=== PATIENT | female | born 1990 | race Caucasian/White ===

== ENCOUNTER 2023-06-05 07:13 | Inpatient (IN) | payer BC, SELFPAY ==
[2023-06-05 08:20] VITALS: BP 134/69
[2023-06-05 08:26] LABS: Add Manual Diff / Slide Review NO; Basophils Absolute Auto 100 /uL (0-100); Basophils Percent Auto 0.5 % (0-2); Eosinophils Absolute Auto 100 /uL (0-450); Eosinophils Percent Auto 0.5 % (2-4); Hematocrit 32.8 % (36-46); Hemoglobin 10.9 g/dL (12.0-16.0); Lymphocytes Absolute Auto 2600 /uL (1100-4500); Lymphocytes Percent Auto 13.9 % (25-40); Mean Corpuscular HGB Conc 33.1 % (30-36); Mean Corpuscular Hemoglobin 26.3 PG (26-34); Mean Corpuscular Volume 79.7 fL (80-100); Monocytes Absolute Auto 1500 /uL (0-900); Monocytes Percent Auto 8.2 % (3-14); Neutrophils Absolute Auto 14200 /uL (1500-7000); Neutrophils Percent Auto 76.9 % (50-75); Platelet Count 355 X10^3/uL (150-400); Red Blood Cell Count 4.12 X10^6/uL (4.0-5.2); White Blood Cell Count 18.4 X10^3/uL (4.5-11.0)
[2023-06-05] MEDS: miSOPROStoL 25 MCG TABLET 50 MCG PO ×4 (08:28→20:40)
--- NOTE | 2023-06-05 10:42 | P.HPOB_ITS ---
OB HPI Date/Time Date of admission: 06/05/23 Date Patient Seen: 06/05/23 Time Patient Seen: 07:30 History of Present Condition Chief complaint: Gestational diabetes type A2 : 3 Para: 0 Estimated Date of Delivery: 06/12/23 Estimated Gestational Age (weeks): 39 Narrative: Giselle Richardson is a 32 year old female at 39 weeks 0 days by sure LMP, concordant with 7 week US, here for IOL for GMDA2. She received regular care with CNMs, co-managed with MFM at [facility]; is complicated by GMDA2 (insulin and metformin), PCOS, BMI > 35 and migraines with aura. She has used a continuous glucose monitor with good blood sugar control; as of day of admission she is taking 50U long acting insulin QHS, 1,000mg metformin qAM, and 4-8U Novolog before meals (03/27/10). Her growth US at 37 weeks 6 days showed an EFW of 3309g, 60th percentile. Yesterday at her visit her Brooks score was 2 and a silicone gregory balloon was placed and inflated with 50mL NS. The gregory balloon came out as she was being admitted to the center this morning, 06/05/2022. She took 33U of her long acting insulin Toujeu, last night; she did not eat breakfast, or take metformin or Novolog this morning. She is feeling regular cramps and movement, has had a small amount of bloody show and no LOF. She is accompanied by her supportive latonia Mckinley and eventually plans an epidural for pain relief. Indications Indication for induction OB: gestational diabetes (GDMA2 (insulin and metformin) ) History of Present care: good care, initiated at week # (7), number of visits (14) and pounds weight gain (44) Dating criteria: LMP confirmed by 1st trimester US Ultrasounds: normal 1st trimester US and normal mid trimester US Obstetrical complications: gestational diabetes (GDMA2) Medical complications: none Preadmission Labs Blood type: B (+) positive -: Antibody screen: negative, GBS status: positive, HBsAG: negative, HIV: negative and RPR/VDLR: negative -: Chlamydia screen: not detected and Gonorrhea screen: not detected -: Rubella: immune and Varicella: immune HCT: 34.2 HCAB: negative Cell-free DNA: Negative MsAFP: Negative Narrative: 75g 2 hr: 99, 166, 116 Prior (ies) History: early SAB x 2 Evaluation Evaluation Baseline heart rate: 135 Variability: Moderate (11-25) monitor accelerations: Present Monitor Decelerations: Absent Contraction Frequency (minutes): 5 Uterine Contraction Intensity: Mild Status: Category l Dilation (cm): 3 Effacement (%): 50 Dilation: 3-4 cm Effacement: 40-50% station: -3 Position of cervix: posterior Consistency: soft Brooks score: 5 [facility] Medical History (Updated 06/05/23 @ 11:48 by Simon Nugent MD) PCOS (polycystic ovarian syndrome) Migraines Gestational diabetes Surgical History [place] teeth extracted Family History Grandfather Cancer Father Diabetes mellitus Brother Epilepsy Grandmother Osteoporosis Clotting disorder Social History marital status: unmarried,living together occupational status: employed (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 Her mother also had PCOS. Meds Home Medications and Allergies Home Medications Medication Instructions Recorded Confirmed Type insulin glargine U-300 conc 300 50 unit SUBCUT 06/05/23 History unit/mL (3 mL) subcutaneous pen (Toujeo Max U-300 SoloStar) insulin lispro 100 unit/mL SUBCUT 06/05/23 History subcutaneous pen (Humalog KwikPen (U-100) Insulin) metformin 500 mg tablet,extended 1,000 mg PO QAM 06/05/23 06/05/23 History release 24 hr Allergies Allergy/AdvReac Type Severity Reaction Status Date / Time amoxicillin Allergy Verified 06/05/23 09:04 bee venom protein (honey bee) Allergy Verified 06/05/23 09:04 clindamycin Allergy Verified 06/05/23 09:04 latex Allergy Verified 06/05/23 09:04 Review of Systems Review of Systems ROS: Yes All systems reviewed with the patient and are negative except as otherwise documented OB Exam Vital signs Blood Pressure: 132/71 Pulse Rate: 80 Temperature: 97.9 F Resp Effort & Inspection: normal respiratory effort Auscultation: clear to auscultation bilaterally Cardio Rate: regular rate Rhythm: regular rhythm Presentation: vertex Objective Labs 06/05/23 08:00 Labs: Laboratory Results - last 24 hr 06/05/23 08:00 WBC 18.4 H RBC 4.12 Hgb 10.9 L Hct 32.8 L MCV 79.7 L MCH 26.3 MCHC 33.1 RDW 15.0 H Plt Count 355 Neut % (Auto) 76.9 H Lymph % (Auto) 13.9 L [place] % (Auto) 8.2 Eos % (Auto) 0.5 L Baso % (Auto) 0.5 Neut # (Auto) 56012 H Lymph # (Auto) 2600 [place] # (Auto) 1500 H Eos # (Auto) 100 Baso # (Auto) 100 Blood Type B Positive Antibody Screen Negative Assessment and Plan Assessment and Plan Assessment and Plan narrative: A: Term nullipara IOL, cervical ripening indicated GDMA2 GBS prophylaxis indicated, penicillin and clindamycin allergic Anemia, mild Rhogam not indicated FHR Cat 1 P: Admit to center Miso for cervical ripening Cefazolin for GBS prophylaxis once patient in active labor or with ROM Active management of the third stage of labor Consulted on-call OB/ Dr. Nugent who will co-managed this patient during her inpatient stay. Reviewed MFM and GDE notes with Dr. Nugent; see MD consult note for BG management details and orders Reassess cervical change after 2 doses of miso, or about 8hrs Reassess patient coping and touch base in 4hrs or sooner PRN
--- NOTE | 2023-06-05 11:16 | PM.CN ---
History of Present Illness Consult details Date Patient Seen: 06/05/23 Time Patient Seen: 11:17 Chief complaint: Gestational diabetes type A2 Narrative: Identification: Patient is a 32-year-old she is currently 39 weeks EGA. Her EDC is noted to be 06/12/2023 by LMP and 7 week ultrasound. Patient initiated her OB care 7 weeks EGA. Because of a BMI of roughly 35 she had a hemoglobin A1c drawn which was 5.1. At 26 weeks she had a 75 g Glucola which was noted to be 160 at 1:00 a.m.. At this point the disc diagnosis of GDM was made. She had consultation with Maternal Medicine. Her eventual medications are those of metformin 1000 mg daily, as well as 50 units long-acting insulin. She is also receiving short-acting 8, 4, 10, 15 minutes before each meal. She is been monitoring her blood sugars with a constant monitoring system and her blood sugars have been averaging in the 110 to 20s. She is had good control. She does describe what appears to be some low blood sugars at 2 in the morning. She is been followed by Maternal- Medicine who has been managing her gestational diabetes. Because she is 39 weeks has been decided to proceed on with induction. Her initial exam showed her cervix to be 1 cm 50% and high. She had a Waldron catheter last night and this morning her cervix was 350 and high her Brooks score is now 5. Intention is to proceed on with misoprostol for further rapid ripening and converting to Pitocin when indicated. Meds Home Medications and Allergies Allergies Allergy/AdvReac Type Severity Reaction Status Date / Time amoxicillin Allergy Verified 06/05/23 09:04 bee venom protein (honey bee) Allergy Verified 06/05/23 09:04 clindamycin Allergy Verified 06/05/23 09:04 latex Allergy Verified 06/05/23 09:04 Review of Systems Musculoskeletal Musculoskeletal: Reports tingling (Bilateral carpal tunnel syndrome right being worse than the left.) Neurologic Neurologic: Reports tingling (Bilateral carpal tunnel syndrome right being worse than the left.) Exam Vital Signs (past 8 hours): - 06/05/23 08:20 Blood Pressure 134/69 Const General: cooperative, healthy appearing and comfortable [facility] Head: normal to inspection, normocephalic and atraumatic Eyes General: appearance normal, both eyes and all related structures Alignment and Position: alignment normal Sclera: sclerae normal Pupils: PERRL Neck Thyroid: thyroid normal Resp Effort & Inspection: normal respiratory effort and able to speak in complete sentences Auscultation: clear to auscultation bilaterally Cardio Rate: regular rate Rhythm: regular rhythm Heart Sounds: S1 normal and S2 normal Back/Spine/Pelvis Back: normal to inspection Neuro General: patient alert, patient awake, patient oriented x3 and oriented Extrem General: normal to inspection Right upper extremity: wrist (numbness/tingling in the radial nerve distribution positive Tinel's R hand) Objective Labs 06/05/23 08:00 Labs: Laboratory Results - last 24 hr 06/05/23 08:00 WBC 18.4 H RBC 4.12 Hgb 10.9 L Hct 32.8 L MCV 79.7 L MCH 26.3 MCHC 33.1 RDW 15.0 H Plt Count 355 Neut % (Auto) 76.9 H Lymph % (Auto) 13.9 L [place]yman % (Auto) 8.2 Eos % (Auto) 0.5 L Baso % (Auto) 0.5 Neut # (Auto) 00504 H Lymph # (Auto) 2600 [place] # (Auto) 1500 H Eos # (Auto) 100 Baso # (Auto) 100 Blood Type B Positive Antibody Screen Negative [facility] Medical History (Updated 06/05/23 @ 11:48 by Simon Nugent MD) PCOS (polycystic ovarian syndrome) Migraines Gestational diabetes Surgical History (Updated 06/05/23 @ 09:05 by Don Estrada RN) [place] teeth extracted Family History (Updated 06/05/23 @ 11:29 by Mikaela Bedoya CNM) Grandfather Cancer Father Diabetes mellitus Brother Epilepsy Grandmother Osteoporosis Clotting disorder Social History marital status: unmarried,living together occupational status: employed (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 Her mother also had PCOS. Assessment & Plan Assessment and plan (1) Gestational diabetes: Status: Acute (2) Migraines: Status: Acute (3) PCOS (polycystic ovarian syndrome): Status: Acute (4) Group B streptococcal carriage complicating : Status: Acute Plan Gestational diabetes A2: DEXA sticks Q 2 hours before labor and Q 1 hour while in labor sliding scale of 2 units of insulin BS greater than 120. 4 units of insulin BS greater than 160 8 units of insulin BS greater than 200 While in labor consider insulin drip of 1 unit per hour in D5 LR. Assessment & Plan narrative: 1. 39 week nulliparous female 2. GDM A2 good control, we will induce patient at 39 weeks because of her A2 GDM. We will check blood sugars q.2 hours prior to initiation of Pitocin. And Q 1 hour while on Pitocin. We will place her on a sliding scale of insulin and consider placing her on insulin drip at time of labor. Following delivery we will stop insulin and follow her blood sugars. 3. Positive GBS penicillin as well as clindamycin allergic. Patient will be given 1st generation cephalosporin for GBS prophylaxis. Time Spent With Patient Time with patient: 50 to 69 minutes with 50% spent counseling/coordinating care (Time was spent consulting with Maternal Medicine Dr. Christofer santiago, also Dr. Begum the allied health professional of the department.)
[2023-06-05 12:02] VITALS: BP 132/71; PULSE 80; TEMP 36.6
--- NOTE | 2023-06-05 12:53 | PM.OBPNLAB ---
Date/Time Date Patient Seen: 06/05/23 Time Patient Seen: 12:53 Pain Control Pain control: tolerating well Comments: Giselle is resting, sitting up in bed. Feeling mild cramps, coping well. IV in her R wrist is bothering her, RN is working on replacing it. VS: BP: 141/64 mmHg HR: 90 bpm T: 37.1C Pelvic Exam Amniotic membrane status: Intact Comments: CE deferred Contractions Contraction frequency (min): 4 Contraction duration (min): 1 Contraction pattern: Regular Contraction intensity: Mild Status status: Category l Heart Rate Baseline: 125 Monitor Accelerations: Present Monitor Decelerations: Absent Monitor Variability: Moderate Assessment and Plan Assessment: induction ongoing Comments: A: Term nullipara IOL, cervical ripening on-going GDMA2 GBS prophylaxis indicated Single elevated BP Coping well FHR Cat 1 P: Second dose of misoprosotol administered at 12:30, plan to recheck in 3 hours Start Cefazolin 2g for GBS prophylaxis when active or with ROM Continue to monitor blood sugars and treat per Dr. Nugent's orders Will continue to monitor BPs, per protocol and will notify [facility] if diagnosis of HTN is made Encourage rest as possible
--- NOTE | 2023-06-05 15:52 | PM.OBPNLAB ---
Date/Time Date Patient Seen: 06/05/23 Time Patient Seen: 15:45 Pain Control Pain control: tolerating well Comments: Giselle is resting in bed, feeling warm, uncomfortable, crampy. VS: BP: 135/68mmHg HR: 86bpm T: 37.1C Pelvic Exam Dilation (cm): 3 Effacement (%): 50 station: -3 Amniotic membrane status: Intact Comments: Baby is lower, cervix more anterior Contractions Contraction frequency (min): 4 Contraction duration (min): 1 Contraction pattern: Regular Contraction intensity: Mild Status status: Category l Heart Rate Baseline: 130 Monitor Accelerations: Present Monitor Decelerations: Absent Monitor Variability: Moderate Assessment and Plan Assessment: induction ongoing Comments: A: Term nullipara IOL, cervical ripening indicated GMDA2 GBS prophylaxis indicated Normotensive FHR Cat 1 P: Continue Misoprostol for cervical ripening Repeat CE after 2 doses or sooner, PRN Start Cefazolin 2g for GBS prophylaxis when active or with ROM Continue to monitor blood sugars and treat per Dr. Nugent's orders Will continue to monitor BPs, per protocol and will notify [facility] if diagnosis of HTN is made Reassess in 4hrs or sooner PRN
--- NOTE | 2023-06-06 01:32 | P.PNOB_ITS ---
Date/Time Date Patient Seen: 06/06/23 Time Patient Seen: 01:30 Pain Control Comments: Patient has been resting on and off. [place] some stronger contractions after her 3rd dose of misoprostol at 1630. 4th dose of miso was due at 2030 was held by RN d/t unit needs/staffing safety and is now able to be given. VS: BP 109/53, HR 69bpm, T 36.3C Temporal BGs all normal Pelvic Exam Dilation (cm): 3 Effacement (%): 50 station: -3 Amniotic membrane status: Intact Comments: CE deferred Contractions Monitor mode: External Contraction frequency (min): 6 Contraction pattern: Irregular Contraction intensity: Mild Status status: Category l Heart Rate Baseline: 120 Monitor Accelerations: Present Monitor Decelerations: Absent Assessment and Plan Assessment: induction ongoing Plan: continuous present management Comments: plan repeat CE in 3 hours.
[2023-06-06] MEDS: miSOPROStoL 25 MCG TABLET 50 MCG PO (01:42)
--- NOTE | 2023-06-06 04:40 | P.PNOB_ITS ---
Date/Time Date Patient Seen: 06/06/23 Time Patient Seen: 04:40 Pain Control Pain control: tolerating well Comments: Sleeping in bed on her left side. [place] stronger contractions with the last 2 doses of misoprostol. No vaginal bleeding or leaking of fluid. VS: 127/59, HR 85, T 36.3C Temporal BGs all normal, no insulin required since admission Pelvic Exam Dilation (cm): 4 Effacement (%): 70 station: -3 Amniotic membrane status: Intact Comments: soft, anterior Contractions Monitor mode: External Contraction frequency (min): 5 Contraction duration (min): 1 Contraction pattern: Regular Contraction intensity: Mild Status status: Category l Heart Rate Baseline: 120 Monitor Accelerations: Present Monitor Decelerations: Absent Monitor Variability: Moderate Assessment and Plan Assessment: induction ongoing Plan: begin patient augmentation Comments: Reassess in 4 hours or sooner, PRN
[2023-06-06] MEDS: OXYTOCIN PREMIX 30 UNIT/500 ML PLAST..BAG IV (07:22)
[2023-06-06] MEDS: LACTATED RINGERS 1,000 ML 100 ML IV ×3 (07:23→18:16)
[2023-06-06] MEDS: CEFAZOLIN 2 GM/100 ML PREMIX 100 ML IV (08:21)
--- NOTE | 2023-06-06 11:38 | PM.OBPNLAB ---
Date/Time Date Patient Seen: 06/06/23 Time Patient Seen: 11:38 Pain Control Pain control: epidural (requested) Comments: Pitocin was started at 0722 d/t delay for staffing/unit safety. Patient has been moving and walking and reports contractions are getting stronger, now requesting an epidural. No vaginal bleeding or leaking of fluid. VS: BP 121/61, HR 100bpm, T 36.4C Temporal q2hr BGs all WNL, no insulin required Pelvic Exam Dilation (cm): 4 Effacement (%): 50 station: -3 Amniotic membrane status: Intact Comments: CE deferred, will check after epidural placement. Contractions Monitor mode: External Pitocin rate (mU/min): 6 Contraction frequency (min): 3 Contraction pattern: Regular Contraction intensity: Moderate Status status: Category l Heart Rate Baseline: 135 Monitor Accelerations: Absent Comments: Had a period of late decelerations from 0940-100 while sitting up on a ball at the foot of the bed, resolved with position change and have not recurred since. Assessment and Plan Assessment: induction ongoing Plan: continuous present management Comments: CE once comfortable after epidural placement Continue pitocin titration to adequate contraction pattern
[2023-06-06] MEDS: DEXTROSE 5% WATER 1,000 ML 100 ML IV (12:07)
--- NOTE | 2023-06-06 16:43 | PM.OBPNLAB ---
Date/Time Date Patient Seen: 06/06/23 Time Patient Seen: 16:43 Pain Control Pain control: epidural Comments: Comfortable with adequate epidural anesthesia. Agreeable to AROM with exam, if minimal cervical change. Partner remains present and supportive. VS: BP 122/82, HR 85bpm, T 36.5C Temporal D5LR @ 100mL/hr started by after BG of 63mg/dL at 1130. BG readings since: 100, 75, 85 mg/dL No insulin required since admission Pelvic Exam Dilation (cm): 5 Effacement (%): 80 station: -3 Amniotic membrane status: Ruptured (AROM) Comments: copious clear fluid Suspect OP position Contractions Monitor mode: External Pitocin rate (mU/min): 12 Contraction frequency (min): 4 Contraction duration (min): 1 Contraction pattern: Regular Contraction intensity: Moderate Status status: Category l Heart Rate Baseline: 135 Monitor Accelerations: Present Monitor Decelerations: Absent Assessment and Plan Assessment: active labor and induction ongoing Plan: continuous present management Comments: Reassess in 4 hours or sooner, PRN
[2023-06-06] MEDS: CEFAZOLIN VIAL 1 GM in SODIUM CHLORIDE 0.9% 100 ML IV (16:51)
--- NOTE | 2023-06-06 18:11 | PM.CN ---
History of Present Illness Consult details Chief complaint: Gestational diabetes type A2 Meds Home Medications and Allergies Home Medications Medication Instructions Recorded Confirmed Type insulin glargine U-300 conc 300 50 unit SUBCUT 06/05/23 History unit/mL (3 mL) subcutaneous pen (Toujeo Max U-300 SoloStar) insulin lispro 100 unit/mL SUBCUT 06/05/23 History subcutaneous pen (Humalog KwikPen (U-100) Insulin) metformin 500 mg tablet,extended 1,000 mg PO QAM 06/05/23 06/05/23 History release 24 hr Allergies Allergy/AdvReac Type Severity Reaction Status Date / Time amoxicillin Allergy Verified 06/05/23 09:04 bee venom protein (honey bee) Allergy Verified 06/05/23 09:04 clindamycin Allergy Verified 06/05/23 09:04 latex Allergy Verified 06/05/23 09:04 Objective Labs 06/05/23 08:00 [facility] Medical History (Updated 06/06/23 @ 18:13 by Simon Nugent MD) PCOS (polycystic ovarian syndrome) Migraines Gestational diabetes Surgical History [place] teeth extracted Family History Grandfather Cancer Father Diabetes mellitus Brother Epilepsy Grandmother Osteoporosis Clotting disorder Social History marital status: unmarried,living together occupational status: 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 Her mother also had PCOS. Assessment & Plan Assessment and plan (1) Gestational diabetes: Problem details: Patient's DEXA sticks have been running in the 70s to 80s. When she was changed to Pitocin. She was started on D5 LR 100 cc/hour. At this point her blood sugars are been in the normal range. We will continue to follow. Status: Acute
[2023-06-06] MEDS: DEXTROSE 5%-LACTATED RINGERS 1,000 ML 125 ML IV (18:59)
[2023-06-06] MEDS: ACETAMINOPHEN 325 MG TABLET 650 MG PO (19:00)
--- NOTE | 2023-06-06 20:39 | PM.OBPNLAB ---
Date/Time Date Patient Seen: 06/06/23 Time Patient Seen: 20:15 Pain Control Pain control: epidural Comments: Giselle has been changing positions frequently using a peanut ball and trying exaggerated lateral positions to promote descent. She is feeling tired and frustrated and is open to any intervention to help make progress. VS and BGs stable. Pelvic Exam Dilation (cm): 5 Effacement (%): 80 station: -3 Amniotic membrane status: Ruptured (AROM) Comments: No change and IUPC placed Contractions Monitor mode: External Pitocin rate (mU/min): 12 Contraction frequency (min): 4 Contraction duration (min): 1 Contraction pattern: Regular Contraction intensity: Moderate Status status: Category l Heart Rate Baseline: 130 Monitor Accelerations: Present Monitor Decelerations: Absent Monitor Variability: Moderate Assessment and Plan Assessment: other Plan: Comments: No descent since admission, arrest of active phase on pitocin with adequate contractions by IUPC. Counseled patient on likely need for and Giselle is feeling ready. Consulted [facility] for consultation for primary at 2030 and he is on his way in. rental agent notified anesthesia and warehouse shipping supervisor.
[2023-06-06] MEDS: CITRIC ACID/SODIUM CITRATE 15 ML SOLUTION 30 ML PO (20:59)
[2023-06-06] MEDS: AZITHROMYCIN 500 MG in DEXTROSE 5% IN WATER 250 ML 250 MG IV (21:00)
--- NOTE | 2023-06-06 21:48 | SUR.OPER ---
Supine on Padded OR bed, head on pillow, safety belt at thigh, arms secured on padded arm boards at <90 degrees abduction. Bump under right buttock. Legs uncrossed with pillow under knees, gel pad to heels, tape over blanket to lower legs.
--- NOTE | 2023-06-06 22:12 | SUR.OPER ---
time 2158. Placenta and cord blood sent with OB nurses.
--- NOTE | 2023-06-06 22:29 | SUR.OPER ---
C section performed by Simon Nugent MD... unable to document this under primary, (not found on list)
--- NOTE | 2023-06-06 22:50 | PM.PROC.1 ---
Procedures Date/Time Date of procedure: 06/06/23 Time of procedure: 21:59 General Procedure description: Integrity Director Documentation I assisted the OB operations research scientist in the section for this patient. My responsibilities included retracting and suctioning, providing fundal pressure during delivery and following with suture during closure. Please see the OB's note for details of the surgery.
[2023-06-06 22:54] VITALS: BP 140/66; PULSE 75; RESP 11; TEMP 36.4; O2SAT 98
[2023-06-06 22:58] VITALS: BP 142/73; PULSE 72; RESP 12; O2SAT 98
[2023-06-06 23:04] VITALS: BP 137/77; PULSE 68; RESP 11; O2SAT 99
--- NOTE | 2023-06-06 23:12 | P.OP_ITS ---
Operative Date/Time/Diagnoses Date of procedure: 06/06/23 Time of procedure: 23:13 Pre-op diagnosis: 1. 32-year-old nulliparous female at 39 weeks 2. Gestational diabetes a 2 3. Arrest of dilatation and descent Post-op diagnosis: other (1. Live male infant 2. vertex presentation 3. right occiput transverse 4. Apgars 5 7 and 9) Procedure & Clinicians Same procedure as scheduled: Yes Operative Notes Closure Type: primary Specimen(s): cord blood and placenta Intraoperative meds administered: Ketorolac Applied: Catheter Estimated Blood Loss (mL): 300 Procedure in detail: Following informed consent: Risks, bleeding, infection, injury to pelvic organs. Bowel, bladder, uterus, tubes, ovaries. Risk of DVT with PE. Patient was taken the operating room at which time she was placed in the supine position with a roll under the right hip. She was prepped and draped in the usual fashion. A time-out was performed at which time the areas or concerns addressed. A Pfannenstiel incision was carried down through subcutaneous tissue to the fascia. The fascia incised transversely then using both blunt and sharp dissection it was freed from rectus abdominis. The rectus was split along the midline the peritoneum was entered high to avoid any injury to bowel or bladder at this point a bladder fat flap was developed using both blunt and sharp dissection. The uterus insize with a 10. Blade and carried laterally utilizing bandage scissors and finger spread technique. The head was noted to be right occiput transverse lifted out the pelvis and after unsuccessful trying to deliver the head through the incision a vacuum was applied and the head was delivered without difficulty. The oropharynx was bulb suctioned and the remainder of the delivered without difficulty. The cord was I clamped and divided and the infant was handed to the nursery team that was standing by. Cord blood samples were obtained. The uterus was exteriorized wrapped in a moist lap and cleansed internal ports the dry lap following delivery of the placenta. It was inspected and felt to be intact. Tubes and ovaries inspected noted be within normal limits. The incision was then closed utilizing a 0. Vicryl in a running locking suture. There was evidence of an extension in the right lower portion of the uterus this was also closed utilizing 0 Vicryl running locking suture this was imbricated utilizing 0 Vicryl. The suture line appeared to be hemostatic. There was some difficulty with pain control so at this point the pause was conducted which time additional epidural medication was administered. The cul-de-sac was irrigated free of any clot and an estimated blood loss of 300 cc was noted. The uterus is delivered back in abdominal cavity the incision still appeared to be hemostatic. Peritoneum was grasped with hemostats then closed utilizing 2-0 Vicryl the rectus reinspected reapproximated utilizing figure eights of 2-0 Vicryl. The fascia was closed utilizing a looped PDS and the subcutaneous tissue was closed utilizing interrupted 2-0 Vicryl. The incision itself closed utilizing 4-0 Monocryl subcuticular. The dressing was applied following application of Steri-Strips with Mastisol. Patient tolerated procedure well was taken recovery and smooth stable condition sponge and needle counts were correct this ends dictation. Complications: other (Difficulty with pain control. This was rectified by re- dosing the epidural and giving a time for this to be effective this was roughly about 5-10 minutes.) Post-operative Condition: stable Disposition: PACU Aftercare: routine postop
[2023-06-07] MEDS: ACETAMINOPHEN IV 1,000 MG/100 ML VIAL 400 MG IV (00:10)
[2023-06-07] MEDS: MORPHINE 2 MG/ML INJ IV (02:37)
[2023-06-07] MEDS: KETOROLAC 30 MG/ML VIAL IV ×3 (05:36→17:30)
[2023-06-07 06:36] LABS: Add Manual Diff / Slide Review NO; Basophils Absolute Auto 100 /uL (0-100); Basophils Percent Auto 0.8 % (0-2); Eosinophils Absolute Auto 100 /uL (0-450); Eosinophils Percent Auto 0.4 % (2-4); Hematocrit 30.2 % (36-46); Lymphocytes Absolute Auto 3100 /uL (1100-4500); Lymphocytes Percent Auto 17.7 % (25-40); Mean Corpuscular HGB Conc 33.1 % (30-36); Mean Corpuscular Hemoglobin 26.2 PG (26-34); Mean Corpuscular Volume 79.1 fL (80-100); Monocytes Absolute Auto 1500 /uL (0-900); Monocytes Percent Auto 8.5 % (3-14); Neutrophils Absolute Auto 12700 /uL (1500-7000); Neutrophils Percent Auto 72.6 % (50-75); Platelet Count 294 X10^3/uL (150-400); Red Blood Cell Count 3.82 X10^6/uL (4.0-5.2); Red Cell Distribution Width 14.8 % (11.6-14.8); White Blood Cell Count 17.5 X10^3/uL (4.5-11.0)
[2023-06-07 06:45] LABS: Hemoglobin A1C% w Est Avg Glu 5.4 % (4.0-6.0)
[2023-06-07] MEDS: DOCUSATE 100 MG CAPSULE PO (09:16)
[2023-06-07] MEDS: PRENATAL VIT,CALC/IRON/FOLIC 1 TABLET 1 TAB PO (09:16)
[2023-06-07] MEDS: OXYCODONE IR 5 MG TABLET PO ×4 (09:16→23:51)
--- NOTE | 2023-06-07 10:52 | PM.OBPN.1 ---
Subjective - OB Subjective Patient comments: no complaints (Pain is currently 3/10. She relates her pain is well controlled at this time. She is not passing flatus. Her Waldron is draining well.) baby status: doing well Date Patient Seen: 06/07/23 Time Patient Seen: 10:53 Exam Vital Signs (past 8 hours): Oxygen Delivery Method Room Air Glucose POC: 103 Const General: cooperative, healthy appearing and comfortable Eyes General: appearance normal, both eyes and all related structures Resp Effort & Inspection: normal respiratory effort and able to speak in complete sentences Auscultation: clear to auscultation bilaterally Cardio Rate: regular rate Rhythm: regular rhythm GI Auscultation: normal bowel sounds General: other (Uterus is about 1 fingerbreadth below the umbilicus it is mildly tender.) Extrem Other: Negative calf tenderness negative Homans sign Psych Appearance: grossly normal Objective Labs 06/07/23 06:20 Labs: Laboratory Results - last 24 hr 06/07/23 06:20 WBC 17.5 H RBC 3.82 L Hgb 10.0 L Hct 30.2 L MCV 79.1 L MCH 26.2 MCHC 33.1 RDW 14.8 Plt Count 294 Neut % (Auto) 72.6 Lymph % (Auto) 17.7 L Freeborn % (Auto) 8.5 Eos % (Auto) 0.4 L Baso % (Auto) 0.8 Neut # (Auto) 33365 H Lymph # (Auto) 3100 Freeborn # (Auto) 1500 H Eos # (Auto) 100 Baso # (Auto) 100 Hemoglobin A1c 5.4 Assessment & Plan Assessment and Plan (1) Gestational diabetes: Problem details: Patient's DEXA sticks have been running in the 70s to 80s. When she was changed to Pitocin. She was started on D5 LR 100 cc/hour. At this point her blood sugars are been in the normal range. We will continue to follow. Status: Acute Assessment and plan: Status post delivery her blood sugars have been running in the 89 last blood sugar was 103. I expect her gestational diabetes to resolve with time we will continue his DEXA sticks and a anti diabetic diet. (2) Group B streptococcal carriage complicating : Problem details: Patient has delivered at this point she received prophylaxis for delivery as well as section. She received 3 g of Ancef as well as azithromycin. Status: Acute Plan day: 1 plan OB: routine postop care Comments: Continue with routine post care. Time Spent With Patient Time: Total time spent is greater than 50% in coordination of care (as documented) at patient's floor/unit and/or counseling patient: Time with patient: 15-24 minutes
[2023-06-07] MEDS: ACETAMINOPHEN 325 MG TABLET 650 MG PO ×3 (11:33→23:51)
[2023-06-08] MEDS: IBUPROFEN 400 MG TABLET 800 MG PO ×2 (00:11→08:17)
[2023-06-08] MEDS: OXYCODONE IR 5 MG TABLET PO (03:57)
[2023-06-08] MEDS: ACETAMINOPHEN 325 MG TABLET 650 MG PO ×2 (05:37→12:13)
--- NOTE | 2023-06-08 07:58 | PM.OBDS.1 ---
Discharge Providers Provider Date of admission: 06/05/23 07:13 Discharge Date: 06/08/23 Consults: 06/06/23 23:36 Consult to Utilization Review Rn Routine Comment: 06/07/23 06:47 Consult to Utilization Review Rn Routine Comment: sleepy , maternal GDM, colostrum at bedside Discharge provider: Simon Nugent MD Summary Hospital Course Date Patient Seen: 06/08/23 Time Patient Seen: 08:04 Diagnoses: 1. 39 weeks' gestation 2. Gestational diabetes 3. Failed in adduction 4. Positive GBS Hospital Course: Patient was admitted. She was induced her blood sugars were monitored closely she did not require D 10 with labor she was able to maintain her blood sugars throughout her labor. She did need to have D5 LR while tye. She reached 6 cm and progressed no further following documentation of adequate uterine contractions. Patient had a primary performed without incident estimated blood loss was roughly 300 cc. Patient is recovering quite well her pain control is adequate she is passing flatus and she desires to go home. I have reviewed contraception mastitis danger signs of DVT as well as uterine infection. Patient will follow-up with her personal chef. Peripartum Data Delivery Method: Section ( for arrest in dilatation and descent) complications: none Discharge Diagnosis (1) Gestational diabetes: Status: Acute Problem Details: Subsequent to delivery patient was placed on an ADA diet. Her DEXA sticks have all been in the low 100s to 90s. (2) Group B streptococcal carriage complicating : Status: Acute Problem Details: GBS status is resolved however she will need to be treated as a previous GBS with her next . Time Spent with Patient Time attestation: Total time spent providing and/or coordinating discharge services: Objective Labs 06/07/23 06:20 Exam Vital Signs (past 8 hours): Oxygen Delivery Method Room Air Glucose POC: 103 (Following breakfast.) Const General: cooperative, healthy appearing and comfortable (Pain is 2/10 while lying, 4/10 when up. Patient notes good pain control) HENMT Head: normal to inspection Eyes General: appearance normal, both eyes and all related structures Conjunctivae: other Sclera: sclerae normal (Nonicteric) Resp Effort & Inspection: normal respiratory effort Auscultation: clear to auscultation bilaterally Cardio Rate: regular rate Rhythm: regular rhythm GI Inspection: normal to inspection and other (Dressing is dry and intact we will remove at visit) Palpation: mass (Uterus palpates 3 fingerbreadths below the umbilicus and is nontender) Auscultation: normal bowel sounds Discharge Plan Discharge Plan Patient Disposition: Home Provider Discharge Comment: Patient recovering quite well from her surgery. She is having adequate pain control. Discharge orders & Medications Prescriptions: New oxycodone 5 mg Tablet 5 mg PO Q4H PRN (Reason: Pain, Moderate (4-6)) 7 Days Qty: 10 0RF Discontinued metformin 500 mg tablet extended release 24 hr 1,000 mg PO QAM Toujeo Max U-300 SoloStar 300 unit/mL (3 mL) insulin pen 50 unit SUBCUT Patient Comments: [NO ORIGINAL SIG] insulin lispro [Humalog KwikPen Insulin] 100 unit/mL insulin pen SUBCUT Patient Comments: [NO ORIGINAL SIG] Follow up/Referrals: Mikaela Bedoya, SARA [[facility]] - (Follow-up in office for 1 week incision check on 06/15/23 @ 4:30pm Follow-up in office at 2 weeks on 06/19/23 @ 10:30am Follow-up in office at 6 weeks on @ 1:45pm ) Diet/Activity/Treatments Diet: Carb-consistent/Diabetic Visit Report/Discharge Packet Instructions: DI for Stand Alone Forms: Discharge: Care, Patient Portal/API, Stroke Signs & Symptoms Discharge Data Attending Provider: Mikaela Bedoya Admit Date/Time: 06/05/23 07:13
[2023-06-08] MEDS: PRENATAL VIT,CALC/IRON/FOLIC 1 TABLET 1 TAB PO (08:17)
[2023-06-08] MEDS: DOCUSATE 100 MG CAPSULE PO (08:17)
== END 2023-06-08 12:25 | disposition home or self-care (01) | DRG 786 ==
PROVIDERS: Obstetrics & Gynecology; Admitting Provider Nurse Practitioner Obstetrics & Gynecology; Referring Provider Nurse Practitioner Obstetrics & Gynecology; Visit Provider Nurse Practitioner Obstetrics & Gynecology
PROC: 10D00Z1 Extraction of Products of Conception, Low, Open Approach (ICD-10-PCS; CPT 59514; principal; 2023-06-06 21:30)
DX: O24.424 Gestational diabetes mellitus in childbirth, insulin controlled (principal); O99.42 Diseases of the circulatory system complicating childbirth; G43.109 Migraine with aura, not intractable, without status migrainosus; O61.0 Failed medical induction of labor; O76 Abnormality in fetal heart rate and rhythm complicating labor and delivery; O99.284 Endocrine, nutritional and metabolic diseases complicating childbirth; E28.2 Polycystic ovarian syndrome; O99.824 Streptococcus B carrier state complicating childbirth; O99.02 Anemia complicating childbirth; Z3A.39 39 weeks gestation of pregnancy; Z37.0 Single live birth
CPT/HCPCS: 36415; 59050; 59200; 59514; 83036; 85025; 86850; 86900; 86901; G0379; J0131; J0690; J1815; J1885; J2250; J2270; J2274; J2405; J2590; J7121

== ENCOUNTER → 2024-07-27 10:08 | Outpatient (CLI) | payer BC, SELFPAY ==
--- NOTE | 2024-07-27 10:10 | DI.US.S_ITS ---
LIMITED ULTRASOUND OF LEFT BREAST AND AXILLA: 07/27/2024 CLINICAL: Patient returns today to evaluate a focal asymmetry in the left breast and focal left breast palpable. Comparison is made to exam dated: 07/27/2024 mammogram - [facility]. Color flow ultrasound of the left breast axilla was performed on the areas of interest. Rooney scale images of the real-time examination were reviewed. There is a round mass in the left breast at 6 o'clock in the retroareolar region. This round mass is hypoechoic with a well-defined boundary, internal echoes, and posterior acoustic enhancement. This correlates with mammography findings. Color flow imaging demonstrates that there is no vascularity present. IMPRESSION: PROBABLY BENIGN The round mass in the left breast likely represents a fibroadenoma and is probably benign. A follow-up ultrasound in 6 months is recommended to demonstrate stability. There is no mammographic or sonographic abnormality seen in the left breast to correspond with the palpable abnormality in the upper outer quadrant, however, clinical followup is recommended. This exam was interpreted at Station ID: [id number]. Electronically Signed By: Sona renae/:07/27/2024 11:37:40 letter sent: Followup Recommended ACR BI-RADS Category 3: Probably Benign
--- NOTE | 2024-07-27 10:10 | DI.US.S_ITS ---
PROCEDURE: US PELVIC COMPLETE INDICATIONS: DYSPAREUNIA. MIRENA IUD. H/O PCOS PER PATIENT. TECHNIQUE: Real-time scanning was performed of the pelvic organs, with image documentation. Additional endovaginal scanning was necessary due to incomplete visualization of the adnexal and endometrial structures by transabdominal scanning. COMPARISON: None. FINDINGS: Uterus: Uterus is anteverted and normal in size at 7.8 x 4.4 x 2.9 cm. The myometrium is heterogeneous. The endometrium measures 2.3 mm combined thickness. IUD within the endometrium. Ovaries: The right ovary measures 2.6 x 2.3 x 1.9 cm, with a calculated ovarian volume of 6 cc. The left ovary measures 2.8 x 1.9 x 1.7 cm, with a calculated ovarian volume of 4 cc. The ovaries have a normal sonographic appearance. Less than 12 follicles can be seen in each ovary. No adnexal masses are seen. Other: No pathologic free abdominal or pelvic fluid. IMPRESSION: IUD appears appropriately positioned within the endometrium. Mildly heterogeneous myometrium, specifically round the junctional zone. Diffuse adenomyosis is a consideration. Greater than 12 follicles per ovary, which can be seen in the clinical setting of PCOS. We strive to produce accurate, complete, and clear reports of imaging services. To assist us in improving patient care, this report was composed using standard report templates and voice recognition software. Therefore, it may contain abnormal punctuation, insertions and/or omissions. Occasional wrong-word or sound-alike substitutions may occur. Though we review the report and make efforts to correct it, we do recommend that the report be read carefully in proper context to recognize any text inaccuracies. Dictated by: Kirt Winter M.D. on 07/28/2024 at 10:11 Approved by: Kirt Winter M.D. on 07/28/2024 at 10:14
--- NOTE | 2024-07-27 10:10 | DI.MG.S_ITS ---
BILATERAL DIGITAL DIAGNOSTIC MAMMOGRAM 3D/2D: 07/27/2024 CLINICAL: Baseline exam. Left breast lump. No prior exams were available for comparison. The breasts are heterogeneously dense, which may obscure small masses (category c / 51-75% glandular tissue). There is an oval focal asymmetry in the right breast at 12 o'clock posterior depth. There is a round focal asymmetry in the left breast at 6 o'clock anterior depth. No other significant masses or calcifications are seen in either breast. IMPRESSION: INCOMPLETE: NEED ADDITIONAL IMAGING EVALUATION The oval focal asymmetry in the right breast at 12 o'clock posterior depth is indeterminate. The round focal asymmetry in the left breast at 6 o'clock anterior depth is indeterminate. . There is no mammographic abnormality seen in the left breast to correspond with the palpable abnormality. A targeted ultrasound of the bilateral breasts is recommended and will be performed immediately following this exam. Based on Tyrer-Cuzick model (a risk assessment model), the patient's lifetime risk is 22.0% and her 10 year risk is 1.2%. If a patient has an elevated risk, a more comprehensive evaluation should be considered and/or a referral to a genetic counselor. The [place] [employer], [employer], and NCCN Guidelines advise the consideration of Breast MRI as an adjunct to screening mammography in patients whose Lifetime risk to develop breast cancer is 20% or higher. This exam was interpreted at Station ID: [id number]. NOTE: For mammograms, a report in lay terms will be sent to the patient. Approximately 15% of breast malignancies will not be visualized mammographically. In the management of a palpable breast mass, a negative mammogram must not discourage biopsy of a clinically suspicious lesion. Electronically Signed By: Sona renae/:07/27/2024 11:04:38 ACR BI-RADS Category 0: Incomplete: Need Additional Imaging Evaluation
--- NOTE | 2024-07-27 11:26 | DI.US.S_ITS ---
ULTRASOUND OF RIGHT BREAST: 07/27/2024 CLINICAL: Patient returns today to evaluate a focal asymmetry in the right breast. Comparison is made to exam dated: 07/27/2024 mammogram - [facility]. Color flow and real-time ultrasound of the right breast were performed on the areas of interest. Rooney scale images of the real-time examination were reviewed. There is an oval mass in the right breast at 12 o'clock posterior depth. This oval mass is hypoechoic with a well-defined boundary, internal echoes, and posterior acoustic enhancement. This correlates with mammography findings. Color flow imaging demonstrates that there is no vascularity present. IMPRESSION: PROBABLY BENIGN The oval mass in the right breast likely represents a fibroadenoma and is probably benign. A follow-up ultrasound in 6 months is recommended to demonstrate stability. This exam was interpreted at Station ID: [id number]. Electronically Signed By: Sona renae/:07/27/2024 11:36:07 letter sent: Followup Recommended ACR BI-RADS Category 3: Probably Benign
== END ==
LOC: MAMMO 10:09
PROVIDERS: Referring Provider Student in an Organized Health Care Education/Training Program; Visit Provider Student in an Organized Health Care Education/Training Program
DX: N63.15 Unspecified lump in the right breast, overlapping quadrants (principal); R92.8 Other abnormal and inconclusive findings on diagnostic imaging of breast; N63.25 Unspecified lump in the left breast, overlapping quadrants; R92.333 Mammographic heterogeneous density, bilateral breasts; N94.12 Deep dyspareunia; Z97.5 Presence of (intrauterine) contraceptive device
CPT/HCPCS: 76642; 76830; 76856; 77066; G0279

== ENCOUNTER → 2025-02-06 13:55 | Outpatient (CLI) | payer OTHER, SELFPAY ==
--- NOTE | 2025-02-06 13:57 | DI.US.S_ITS ---
US breast BI limited: 02/06/2025. BI-RADS: 3 CLINICAL: 34-year old female for bilateral diagnostic breast ultrasound that is a follow-up to ultrasound, right on 07/27/2024. Tyrer-Cuzick lifetime risk of 11.8%. No personal or first-degree family history of breast cancer. PRIOR EXAMS 07/27/2024. ULTRASOUND TECHNIQUE Real-time thompson scale and color doppler imaging of the area of clinical interest was performed with image documentation. TARGETED Left Breast Ultrasound: Real-time ultrasound exam was performed focused to area of clinical and/or imaging concern. TARGETED Right Breast Ultrasound: Real-time ultrasound exam was performed focused to area of clinical and/or imaging concern. ULTRASOUND FINDINGS Right: Upper Inner at 1:00, 10 cm from nipple, Deep, measuring 1 x 0.5 x 0.7 cm - previously measuring (07/27/2024) 0.9 x 0.4 x 0.7 cm: There is an oval, circumscribed, hypoechoic mass that is parallel showing no posterior acoustic features. Doppler shows no vascularity. Probably fibroadenoma. Left: Lower at 6:00, Retroareolar, 1 cm from nipple, Superficial Depth, measuring 1 x 1.1 x 0.7 cm - previously measuring (07/27/2024) 0.9 x 1 x 0.4 cm: There is an oval, circumscribed, hypoechoic mass that is parallel showing posterior acoustic enhancement. Doppler shows no vascularity. Probably sebaceous cyst. IMPRESSION: Right (Mass): Upper Inner at 1:00, 10 cm from nipple, Deep, measuring 1 x 0.5 x 0.7 cm - previously measuring (07/27/2024) 0.9 x 0.4 x 0.7 cm * Probably Benign. Left (Mass): Lower at 6:00, Retroareolar, 1 cm from nipple, Superficial Depth, measuring 1 x 1.1 x 0.7 cm - previously measuring (07/27/2024) 0.9 x 1 x 0.4 cm * Probably Benign. RECOMMENDATIONS Bilateral * Six month followup with diagnostic ultrasound. COMMENTS: Findings and recommendations were conveyed to the patient during today's evaluation. OVERALL ASSESSMENT CATEGORY BI-RADS-3: Probably Benign. ELECTRONICALLY SIGNED: Chetna Powers M.D. on 02/08/2025 at 12:40:13 AM PT Interpreting Station ID: [id number]
== END ==
PROVIDERS: Referring Provider Student in an Organized Health Care Education/Training Program; Visit Provider Student in an Organized Health Care Education/Training Program
DX: R92.8 Other abnormal and inconclusive findings on diagnostic imaging of breast (principal); N63.12 Unspecified lump in the right breast, upper inner quadrant; N63.25 Unspecified lump in the left breast, overlapping quadrants
CPT/HCPCS: 76642